=== PATIENT | female | born 1945 | race Caucasian/White ===

== ENCOUNTER 2017-09-30 06:45 | Day surgery (SDC) | payer MEDICARE ==
[2017-09-30] MEDS ORDERED: BUPIVACAINE/EPI 0.5% 10 ML SOL INFIL ONE ×2 (07:19)
[2017-09-30] MEDS ORDERED: FENTANYL 100MCG/2ML SOL ONE (07:46)
[2017-09-30] MEDS ORDERED: PROPOFOL 500 MG/50 ML EMU IV ONE (07:46)
[2017-09-30] MEDS ORDERED: LIDOCAINE HCL 1% MPF SOL ONE (07:46)
[2017-09-30 09:22] VITALS: BP 149/70; PULSE 60; RESP 18; TEMP 97.4; O2SAT 100
== END 2017-09-30 09:43 | disposition home or self-care (01) | DRG 607 ==
LOC: SURG 06:45
PROVIDERS: ATTEND Surgery
DX: L72.3 Sebaceous cyst (principal)
CPT/HCPCS: J3010; A6402; J2001; J2704